=== PATIENT | female | born 1970 | race Caucasian/White ===

== ENCOUNTER 2023-07-31 06:55 | Observation (INO) | payer OTHER ==
[2023-07-31] MEDS ORDERED: Ondansetron 4 MG Tab.DIS PO ONE (07:24)
[2023-07-31] MEDS ORDERED: HYDROmorphone 1 MG/ML Syringe SUBCUT ONE (07:26)
[2023-07-31] MEDS ORDERED: Naloxone 0.4 MG/ML SDV IVPUSH PRN (07:26)
[2023-07-31] MEDS ORDERED: Orphenadrine 60 MG/2 ML Inj IM ONE (07:26)
[2023-07-31] MEDS ORDERED: HYDROmorphone 0.5 MG/0.5 ML Syringe IM ONE (07:39)
[2023-07-31] MEDS ORDERED: Sodium Chloride 0.9% 1,000 ML IV ONE (08:21)
[2023-07-31] MEDS ORDERED: Ketorolac 30 MG/ML SDV IVPUSH ONE (08:53)
[2023-07-31] MEDS ORDERED: Ondansetron 4 MG Tab.DIS PO PRN (09:49)
[2023-07-31] MEDS ORDERED: Sodium Chloride 0.9% 10 ML Syringe FLUSH PRN (09:49)
[2023-07-31] MEDS ORDERED: Docusate Sodium 100 MG Cap PO PRN (09:49)
[2023-07-31] MEDS ORDERED: Ondansetron 4 MG/2 ML SDV IV PRN (09:49)
[2023-07-31] MEDS ORDERED: Ketorolac 30 MG/ML SDV IM PRN (09:49)
[2023-07-31] MEDS ORDERED: HYDROmorphone 0.5 MG/0.5 ML Syringe IVPUSH PRN (09:49)
[2023-07-31] MEDS: Acetaminophen/HYDROcodone 325-10 MG Tab PO PRN ×2 (12:47→21:59)
[2023-07-31] MEDS: Cyclobenzaprine 10 MG Tab PO SCH ×2 (12:48→21:20)
[2023-08-01] MEDS: Acetaminophen/HYDROcodone 325-10 MG Tab PO PRN ×2 (05:40→10:12)
[2023-08-01] MEDS: Cyclobenzaprine 10 MG Tab PO SCH ×2 (08:30→13:42)
== END 2023-08-01 14:45 | disposition home or self-care (01) ==
LOC: VM.ED 06:55 → VM.MS 09:26
PROVIDERS: ADMIT Physician Assistant Medical; ATTEND Physician Assistant Medical
DX: S32.009A Unspecified fracture of unspecified lumbar vertebra, initial encounter for closed fracture (principal); I10 Essential (primary) hypertension; W01.0XXA Fall on same level from slipping, tripping and stumbling without subsequent striking against object, initial encounter; Z79.899 Other long term (current) drug therapy; Z88.5 Allergy status to narcotic agent
CPT/HCPCS: 72131; 96372; 96374; 97161; 99223; 99238; 99284; A9270; J1170; J1885; J2360; J7030; G0378